=== PATIENT | female | born 1980 | race Caucasian/White ===

== ENCOUNTER → 2018-02-13 | Outpatient (CLI) | payer BC, OTHER ==
[2018-02-13 16:58] LABS: THYROXINE (T4) 10.9 UG/DL (4.5-12.0)
[2018-02-13 16:58] LABS: FREE T3 2.3 PG/ML (2.2-4.0)
== END ==
LOC: M LAB 15:22
DX: E03.9 Hypothyroidism, unspecified (principal)
CPT/HCPCS: 84443

== ENCOUNTER → 2018-09-03 | Outpatient (REF) | payer OTHER ==
[2018-09-06 18:21] LABS: HPV HYBRID CAPTURE II Negative (Negative)
== END ==
LOC: M SFHCWAGY 15:22
PROVIDERS: ATTEND Nurse Practitioner Family
DX: Z12.4 Encounter for screening for malignant neoplasm of cervix (principal)
CPT/HCPCS: 87624; G0123

== ENCOUNTER → 2018-11-27 | Outpatient (REF) | payer OTHER | LOC: M LAB REF 19:13 | PROVIDERS: ATTEND Physician Assistant | DX: N39.0 Urinary tract infection, site not specified (principal) ==

== ENCOUNTER → 2019-05-19 | Outpatient (REF) | payer OTHER | LOC: M LAB REF 19:29 | PROVIDERS: ATTEND Physician Assistant Medical | DX: N39.0 Urinary tract infection, site not specified (principal) ==

== ENCOUNTER → 2019-06-12 | Outpatient (REF) | payer BC, OTHER ==
[2019-06-12 13:42] LABS: APPEARANCE, URINE HAZY (CLEAR); BACTERIA, URINE AUTO NEGATIVE (NEGATIVE); BILIRUBIN, URINE AUTO NEGATIVE (NEGATIVE); BLOOD, URINE BLOOD 1+ (NEGATIVE); COLOR, URINE YELLOW (YELLOW); GLUCOSE, URINE (UA) AUTO NEGATIVE (NEGATIVE); KETONE, URINE AUTO NEGATIVE (NEGATIVE); LEUKOCYTE ESTERASE, URINE AUTO NEGATIVE (NEGATIVE); MUCUS, URINE LARGE (NEGATIVE); NITRITE, URINE AUTO NEGATIVE (NEGATIVE); PROTEIN, URINE AUTO NEGATIVE (NEGATIVE); RBC, URINE AUTO 1 /HPF (0-3); SPECIFIC GRAVITY URINE AUTO 1.025 (1.002-1.035); SQUAMOUS EPITHELIAL CELL UR AU 2 /HPF (0-6); UROBILINOGEN, URINE AUTO 0.2 mg/dL (0.0-2.0); WBC, URINE AUTO 1 /HPF (0-3)
== END ==
LOC: M SMT 12:51
PROVIDERS: ATTEND Nurse Practitioner Women's Health
DX: N39.0 Urinary tract infection, site not specified (principal)

== ENCOUNTER → 2019-10-29 | Outpatient (REF) | payer OTHER | LOC: M SFHCWAGY 17:15 | PROVIDERS: ATTEND Nurse Practitioner Family | DX: Z12.4 Encounter for screening for malignant neoplasm of cervix (principal) ==

== ENCOUNTER → 2020-04-15 | Outpatient (CLI) | payer BC ==
--- NOTE | 2020-05-20 11:15 | REP ---
DIGITAL DIAGNOSTIC BILATERAL MAMMOGRAPHY WITH CAD, 3D TOMOGRAPHY AND FOCUSED RIGHT BREAST SONOGRAPHY HISTORY: Right breast lump 4 o'clock position, pea sized. COMPARISON: No comparison breast imaging. MAMMOGRAPHIC FINDINGS: Routine views of the right breast are augmented by diagnostic magnified focal spot compression images in craniocaudal, mediolateral oblique, and mediolateral projections. A skin marker is affixed to the skin at the site of the palpable lump. This injections inferiorly and medially in the right breast at approximately 4 to 5 o'clock. The breast parenchyma is heterogeneously dense in a pattern which may inhibit the sensitivity of mammography. No dominant density is seen in the area of the palpable lump. No mass lesion is noted elsewhere in the right breast or in the left breast. No microcalcification, architectural distortion, skin change, or other abnormality is seen mammographically. SONOGRAPHIC FINDINGS: Focused right breast sonography is performed in the area of the palpable lump at 4 o'clock. Heterogeneous fibroglandular background echotexture is seen. No cyst or mass is observed. No suspicious acoustic shadowing is seen. IMPRESSION: BI-RADS Category 1 negative bilateral breast imaging. Clinical follow-up is advised. This mammogram was read with the aid of an FDA approved computer assisted detection system. The patient reports her last clinical breast exam 03/2020. Patient letter: M2 dense. JANETTE
== END ==
LOC: M WHC 10:41
PROVIDERS: ATTEND Nurse Practitioner Family
DX: Z12.31 Encounter for screening mammogram for malignant neoplasm of breast (principal); N63.10 Unspecified lump in the right breast, unspecified quadrant

== ENCOUNTER → 2020-10-19 | Outpatient (REF) | payer OTHER ==
[2020-10-19 13:52] LABS: HEMATOCRIT 37.8 % (36.0-47.0); HEMOGLOBIN 11.8 g/dl (12.0-15.5); MEAN CORPUSCULAR HEMOGLOBIN 26.2 pg (27.0-33.0); MEAN CORPUSCULAR HGB CONC 31.2 g/dl (32.0-36.5); MEAN CORPUSCULAR VOLUME 83.8 fl (80.0-96.0); PLATELET COUNT, AUTOMATED 319 10^3/uL (150-450); RED BLOOD COUNT 4.51 10^6/uL (4.00-5.40); WHITE BLOOD COUNT 5.7 10^3/uL (4.0-10.0)
[2020-10-19 13:57] LABS: ALBUMIN 3.7 GM/DL (3.2-5.2); ALT/SGPT 54 U/L (12-78); BILIRUBIN,TOTAL 0.5 MG/DL (0.2-1.0); BLOOD UREA NITROGEN 9 MG/DL (7-18); CALCIUM LEVEL 8.8 MG/DL (8.5-10.1); CARBON DIOXIDE LEVEL 28 MEQ/L (21-32); CHLORIDE LEVEL 104 MEQ/L (98-107); CHOLESTEROL LEVEL 163 MG/DL (<200); CHOLESTEROL RISK RATIO 1.811 (<5); CREATININE FOR GFR 0.85 MG/DL (0.55-1.30); FREE T4 0.99 NG/DL (0.76-1.46); GLOMERULAR FILTRATION RATE > 60.0 (>58); GLUCOSE, FASTING 89 MG/DL (70-100); HDL CHOLESTEROL 90 MG/DL (>40); LDL CHOLESTEROL 66 MG/DL (<100); NON-HDL-C 73 MG/DL; POTASSIUM SERUM 4.2 MEQ/L (3.5-5.1); SODIUM LEVEL 138 MEQ/L (136-145); TOTAL PROTEIN 6.7 GM/DL (6.4-8.2); TRIGLYCERIDES LEVEL 33 MG/DL (<150)
[2020-10-19 14:09] LABS: HEMOGLOBIN A1c 5.1 %
== END ==
LOC: M SFHCADAM 09:01
PROVIDERS: ATTEND Physician Assistant
DX: L65.9 Nonscarring hair loss, unspecified (principal); R63.5 Abnormal weight gain; Z13.1 Encounter for screening for diabetes mellitus; Z13.220 Encounter for screening for lipoid disorders

== ENCOUNTER 2021-08-28 17:42 | Emergency (ER) | payer BC, OTHER ==
[2021-08-28 18:30] LABS: HEMATOCRIT 40.3 % (36.0-47.0); HEMOGLOBIN 12.9 g/dl (12.0-15.5); MEAN CORPUSCULAR HEMOGLOBIN 26.3 pg (27.0-33.0); MEAN CORPUSCULAR VOLUME 82.1 fl (80.0-96.0); PLATELET COUNT, AUTOMATED 269 10^3/uL (150-450); RED BLOOD COUNT 4.91 10^6/uL (4.00-5.40); WHITE BLOOD COUNT 9.2 10^3/uL (4.0-10.0)
[2021-08-28 19:02] LABS: ACETAMINOPHEN LEVEL < 2.0 UG/ML (10.0-30.0); ALT/SGPT 17 U/L (12-78); BILIRUBIN,DIRECT 0.1 MG/DL (0.0-0.2); BILIRUBIN,TOTAL 0.4 MG/DL (0.2-1.0); BLOOD UREA NITROGEN 9 MG/DL (7-18); CALCIUM LEVEL 8.7 MG/DL (8.5-10.1); CARBON DIOXIDE LEVEL 26 MEQ/L (21-32); CHLORIDE LEVEL 104 MEQ/L (98-107); CREATININE FOR GFR 0.93 MG/DL (0.55-1.30); ETHYL ALCOHOL (ETHANOL) < 0.003 % (0.000-0.010); GLOMERULAR FILTRATION RATE > 60.0 (>58); GLUCOSE, FASTING 105 MG/DL (70-100); POTASSIUM SERUM 3.2 MEQ/L (3.5-5.1); SALICYLATE LEVEL < 1.7 MG/DL (5.0-30.0); SODIUM LEVEL 138 MEQ/L (136-145); TOTAL PROTEIN 7.3 GM/DL (6.4-8.2)
[2021-08-28 19:56] LABS: HCG, SERUM QUANTITATIVE < 1.0 MIU/ML
[2021-08-28 20:53] LABS: AMPHETAMINES LEVEL URINE NEGATIVE (NEGATIVE); BARBITURATES URINE NEGATIVE (NEGATIVE); BENZODIAZEPINES URINE NEGATIVE (NEGATIVE); CANNABINOIDS URINE POSITIVE (NEGATIVE); COCAINE METABOLITE URINE NEGATIVE (NEGATIVE); METHADONE URINE NEGATIVE (NEGATIVE); OPIATES URINE NEGATIVE (NEGATIVE); PHENCYCLIDINE URINE NEGATIVE (NEGATIVE)
[2021-08-28 21:03] LABS: RSV AMPLIFICATION NEGATIVE (NEGATIVE)
--- NOTE | 2021-08-29 08:51 | ECGEPIP ---
[facility] - ED Test Date: 2021-08-28 Pat Name: VAUGHN JAVIER Department: Room: - Gender: Female [employer]: PASCALE : 1980 Requested By: AISHA Gonzalez Order Number: [id number] Reading MD: Jovan Mracus Measurements Intervals [place] Rate: 84 P: 80 IA: 150 QRS: 90 QRSD: 90 T: 50 QT: 360 QTc: 425 Interpretive Statements Normal sinus rhythm Borderline rightward axis NO PRIORS FOR COMPARISON Electronically Signed on 08-29-2021 8:51:33 EST by Jovan Marcus
[2021-08-29 08:52] VITALS: BP 134/75
== END 2021-08-29 08:54 ==
LOC: M ED 17:42
DX: F29 Unspecified psychosis not due to a substance or known physiological condition (principal); F31.9 Bipolar disorder, unspecified

== ENCOUNTER 2023-03-23 23:35 | Emergency (ER) | payer BC, OTHER ==
[~2023-03-23] VITALS: Ht 165.1 cm; Wt 78.6 kg
[2023-03-24 00:32] LABS: LIPASE 64 U/L (12-53)
[2023-03-24 00:34] LABS: CPK CREATINE PHOSPHOKINASE 76 U/L (34-145)
[2023-03-24 00:35] LABS: ALBUMIN 3.9 G/DL (3.2-5.2); ALKALINE PHOSPHATASE 69 U/L (46-116); ALT/SGPT 19 U/L (7.0-40); AST/SGOT 11 U/L (<34); BILIRUBIN,DIRECT < 0.1 MG/DL (<0.4); BILIRUBIN,TOTAL 0.2 MG/DL (0.3-1.2); CK-MB VALUE MASS < 1.0 NG/ML (<3.6); MB/CK RELATIVE INDEX 1.31 (< OR =4); TOTAL PROTEIN 6.6 G/DL (5.7-8.2)
[2023-03-24 00:41] LABS: INR 0.94; PROTHROMBIN TIME 12.8 SECONDS (12.5-14.5)
[2023-03-24 00:46] LABS: BASO % 0.2 % (0.0-1.0); EOS # 0.3 10^3/uL (0.0-0.5); LYMPH # 3.4 10^3/uL (1.5-5.0); MEAN CORPUSCULAR HEMOGLOBIN 26.6 pg (27.0-33.0); MEAN CORPUSCULAR HGB CONC 32.4 g/dl (32.0-36.5); MONO # 0.6 10^3/uL (0.0-0.8); MONO % 5.9 % (2.0-8.0); NEUTROPHILS % 57.5 % (36.0-66.0); PLATELET COUNT, AUTOMATED 341 10^3/uL (150-450); RED BLOOD COUNT 4.51 10^6/uL (4.00-5.40); WHITE BLOOD COUNT 10.4 10^3/uL (4.0-10.0)
[2023-03-24 06:00] VITALS: BP 93/52; TEMP 97.8
[2023-03-24 06:00] LABS: CK-MB VALUE MASS < 1.0 NG/ML (<3.6)
[2023-03-24 06:08] LABS: CPK CREATINE PHOSPHOKINASE 75 U/L (34-145); MB/CK RELATIVE INDEX 1.33 (< OR =4)
[2023-03-24 06:15] VITALS: O2SAT 96
== END 2023-03-24 06:56 | disposition home or self-care (01) ==
LOC: M ED 23:35
DX: F41.1 Generalized anxiety disorder (principal); R07.89 Other chest pain; Z88.0 Allergy status to penicillin; Z91.018 Allergy to other foods

== ENCOUNTER → 2023-12-19 | Outpatient (CLI) | payer BC | LOC: M PLAIMG 15:47 | PROVIDERS: ATTEND Physician Assistant | DX: M25.511 Pain in right shoulder (principal); M19.011 Primary osteoarthritis, right shoulder ==

== ENCOUNTER → 2024-02-18 | Outpatient (REF) | payer BC ==
[2024-02-18 18:28] LABS: HEMATOCRIT 39.5 % (36.0-47.0); HEMOGLOBIN 12.4 g/dl (12.0-15.5); MEAN CORPUSCULAR HEMOGLOBIN 26.7 pg (27.0-33.0); MEAN CORPUSCULAR HGB CONC 31.4 g/dl (32.0-36.5); MEAN CORPUSCULAR VOLUME 85.1 fl (80.0-96.0); PLATELET COUNT, AUTOMATED 298 10^3/uL (150-450); RED BLOOD COUNT 4.64 10^6/uL (4.00-5.40); WHITE BLOOD COUNT 7.4 10^3/uL (4.0-10.0)
[2024-02-18 18:37] LABS: ALBUMIN 4.1 G/DL (3.2-5.2); ALKALINE PHOSPHATASE 46 U/L (46-116); ALT/SGPT 21 U/L (7.0-40); AST/SGOT 14 U/L (<34); BILIRUBIN,TOTAL 0.4 MG/DL (0.3-1.2); BLOOD UREA NITROGEN 15 MG/DL (9-23); CALCIUM LEVEL 9.5 MG/DL (8.5-10.1); CARBON DIOXIDE LEVEL 29 MMOL/L (20-31); CHLORIDE LEVEL 106 MMOL/L (98-107); CHOLESTEROL LEVEL 171 MG/DL (<200); CHOLESTEROL RISK RATIO 2.55 (<5); CREATININE FOR GFR 0.94 MG/DL (0.55-1.30); GLOMERULAR FILTRATION RATE > 60.0 (>58); GLUCOSE, FASTING 86 MG/DL (60-100); LDL CHOLESTEROL 93.6 MG/DL (<100); POTASSIUM SERUM 4.6 MMOL/L (3.5-5.1); SODIUM LEVEL 137 MMOL/L (136-145); TOTAL PROTEIN 6.9 G/DL (5.7-8.2); TRIGLYCERIDES LEVEL 52 MG/DL (<150)
[2024-02-18 18:38] LABS: THYROID STIMULATING HORMONE 1.744 uIU/ML (0.55-4.78)
[2024-02-18 18:39] LABS: FREE T4 1.07 NG/DL (0.89-1.76)
[2024-02-18 18:59] LABS: HEMOGLOBIN A1c 4.9 % (4.0-6.0)
== END ==
LOC: M SFHCADAM 12:27
PROVIDERS: ATTEND Physician Assistant
DX: E66.01 Morbid (severe) obesity due to excess calories (principal); Z12.31 Encounter for screening mammogram for malignant neoplasm of breast; J45.40 Moderate persistent asthma, uncomplicated; Z68.41 Body mass index [BMI] 40.0-44.9, adult; R63.2 Polyphagia; Z13.1 Encounter for screening for diabetes mellitus; Z13.220 Encounter for screening for lipoid disorders

== ENCOUNTER → 2024-02-19 | Outpatient (REF) | payer BC | LOC: M SFHCADAM 10:18 | PROVIDERS: ATTEND Physician Assistant | DX: E66.01 Morbid (severe) obesity due to excess calories (principal); Z12.31 Encounter for screening mammogram for malignant neoplasm of breast; J45.40 Moderate persistent asthma, uncomplicated; Z68.41 Body mass index [BMI] 40.0-44.9, adult; R63.2 Polyphagia; Z13.1 Encounter for screening for diabetes mellitus; Z13.220 Encounter for screening for lipoid disorders ==

== ENCOUNTER → 2024-04-16 | Outpatient (REF) | payer BC ==
[2024-04-16 19:04] LABS: C REACTIVE PROTEIN QUANTITATIV < 0.40 MG/DL (<1.0)
[2024-04-16 19:06] LABS: RHEUMATOID FACTOR QUANT 4.8 IU/ML (<14)
[2024-04-16 19:08] LABS: TOTAL 25(OH) VITAMIN D 68.2 NG/ML (20.0-100.0)
[2024-04-20 14:41] LABS: ANA SCREEN, IFA NEGATIVE (NEGATIVE)
[2024-04-20 23:52] LABS: CYCLIC CITRULLINATED PEPTIDE 19 UNITS (<20)
== END ==
LOC: M SFHCADAM 14:29
PROVIDERS: ATTEND Physician Assistant
DX: M25.50 Pain in unspecified joint (principal)

== ENCOUNTER → 2024-07-16 | Outpatient (CLI) | payer BC | LOC: M WHC 09:59 | PROVIDERS: ATTEND Physician Assistant | DX: Z12.31 Encounter for screening mammogram for malignant neoplasm of breast (principal); R92.333 Mammographic heterogeneous density, bilateral breasts ==

== ENCOUNTER → 2024-08-20 | Outpatient (CLI) | payer BC | LOC: M SOG 11:03 | PROVIDERS: ATTEND Orthopaedic Surgery Hand Surgery | DX: M25.511 Pain in right shoulder (principal) ==

== ENCOUNTER → 2024-09-16 | Outpatient (CLI) | payer BC | LOC: M RAD 15:57 | PROVIDERS: ATTEND Orthopaedic Surgery Hand Surgery | DX: M25.511 Pain in right shoulder (principal); M19.011 Primary osteoarthritis, right shoulder; M75.111 Incomplete rotator cuff tear or rupture of right shoulder, not specified as traumatic; M77.8 Other enthesopathies, not elsewhere classified ==

== ENCOUNTER → 2024-11-25 | Outpatient (CLI) | payer BC | LOC: M PLAIMG 11-12 14:09 | PROVIDERS: ATTEND Orthopaedic Surgery Hand Surgery | DX: M43.12 Spondylolisthesis, cervical region (principal); M48.02 Spinal stenosis, cervical region; M50.221 Other cervical disc displacement at C4-C5 level; M89.38 Hypertrophy of bone, other site ==

== ENCOUNTER → 2025-04-12 | Outpatient (CLI) | payer BC ==
[2025-04-13 10:32] LABS: SEX HORMONE BINDING GLOBULIN 132 nmol/L (17-124)
== END ==
LOC: M LAB 13:27
PROVIDERS: ATTEND Nurse Practitioner Women's Health
DX: R68.82 Decreased libido (principal)